=== PATIENT | male | born 1990 | race Caucasian/White ===

== ENCOUNTER 2022-11-10 15:16 | Emergency (ER) | payer SELFPAY ==
[2022-11-10 15:20] VITALS: BP 129/86; PULSE 71; RESP 18; TEMP 97.8; BMI 25.0
== END 2022-11-10 17:59 | disposition home or self-care (01) ==
LOC: JERFT 15:16
DX: M54.50 Low back pain, unspecified (principal)
CPT/HCPCS: 72100-TC-FY; 99283-25